=== PATIENT | male | born 1985 | race Caucasian/White ===

== ENCOUNTER 2021-10-31 12:24 | Emergency (ER) | payer SELFPAY ==
[2021-10-31] MEDS ORDERED: CYCLOBENZAPRINE5 MG PO (15:35)
[2021-10-31] MEDS ORDERED: NAPROSYN500 MG PO (15:35)
== END 2021-10-31 16:16 | disposition home or self-care (01) ==
LOC: ER1 12:24
DX: S39.012A Strain of muscle, fascia and tendon of lower back, initial encounter (principal); M51.87 Other intervertebral disc disorders, lumbosacral region; M54.32 Sciatica, left side; I10 Essential (primary) hypertension; X50.0XXA Overexertion from strenuous movement or load, initial encounter
CPT/HCPCS: 72131; 96372; 99283; J1100; J1885

== ENCOUNTER → 2021-12-25 | Outpatient (CLI) | payer OTHER ==
[~2021-12-25] MED LIST: CYCLOBENZAPRINE5 MG PO; NAPROSYN500 MG PO
== END ==
LOC: KOH-I 14:34
DX: M51.26 Other intervertebral disc displacement, lumbar region (principal)
CPT/HCPCS: 72148